=== PATIENT | male | born 1995 | race African-American/Black ===

== ENCOUNTER → 2019-09-06 | Outpatient (CLI) | payer OTHER | LOC: COL.PUL 10:00 | DX: R06.02 Shortness of breath (principal) ==

== ENCOUNTER 2020-01-18 08:03 | Outpatient (CLI) | payer OTHER ==
[2020-01-18 08:20] VITALS: BP 108/69; PULSE 68; TEMP 98.3
[2020-01-18] MEDS ORDERED: PEPCID40 MG PO (08:21)
[2020-01-18] MEDS ORDERED: PREDNISONE10 MG PO ×2 (08:22→08:23)
[2020-01-18] MEDS ORDERED: TRELEGY ELLIPT1 EACH IH (08:40)
--- NOTE | 2020-01-18 10:41 | NUR ---
2 hour post first dose Xolair observation. Denies any symptoms.
== END 2020-01-18 10:46 | disposition home or self-care (01) ==
LOC: EUO 08:03
DX: J45.50 Severe persistent asthma, uncomplicated (principal); Z79.899 Other long term (current) drug therapy
CPT/HCPCS: J2357

== ENCOUNTER 2020-02-15 08:00 | Outpatient (CLI) | payer OTHER ==
[~2020-02-15] VITALS: Ht 180.3 cm; Wt 82.7 kg
[~2020-02-15 08:00] MED LIST: PEPCID40 MG PO; PREDNISONE10 MG PO; TRELEGY ELLIPT1 EACH IH
[2020-02-15] MEDS ORDERED: XOLAIR150 MG/1 M SQ (08:39)
[2020-02-15 08:48] VITALS: BP 112/62; PULSE 72; TEMP 98.4
== END 2020-02-15 08:49 | disposition home or self-care (01) ==
LOC: EUO 08:00
DX: J45.40 Moderate persistent asthma, uncomplicated (principal); Z79.899 Other long term (current) drug therapy
CPT/HCPCS: J2357

== ENCOUNTER 2020-03-20 14:49 | Outpatient (CLI) | payer OTHER ==
[~2020-03-20] VITALS: Ht 180.3 cm; Wt 87.0 kg
[~2020-03-20 14:49] MED LIST changes: +XOLAIR150 MG/1 M SQ
[2020-03-20 15:16] VITALS: BP 124/76; PULSE 93; TEMP 97.8
== END 2020-03-20 16:31 | disposition home or self-care (01) ==
LOC: EUO 14:49
DX: J45.50 Severe persistent asthma, uncomplicated (principal); Z79.899 Other long term (current) drug therapy
CPT/HCPCS: J2357

== ENCOUNTER 2020-04-24 13:56 | Outpatient (CLI) | payer OTHER ==
[~2020-04-24] VITALS: Ht 180.3 cm; Wt 86.3 kg
[2020-04-24 14:11] VITALS: BP 108/65; PULSE 71; TEMP 98.4
== END 2020-04-24 14:45 | disposition home or self-care (01) ==
LOC: EUO 13:56
DX: J45.50 Severe persistent asthma, uncomplicated (principal); Z79.899 Other long term (current) drug therapy

== ENCOUNTER 2020-07-16 15:23 | Outpatient (CLI) | payer OTHER ==
[~2020-07-16] VITALS: Ht 180.3 cm; Wt 86.0 kg
[2020-07-16 15:48] VITALS: BP 109/69; PULSE 76; TEMP 98.6
== END 2020-07-16 16:10 | disposition home or self-care (01) ==
LOC: EUO 15:23
DX: J45.50 Severe persistent asthma, uncomplicated (principal)
CPT/HCPCS: J2357

== ENCOUNTER 2020-08-07 15:11 | Outpatient (CLI) | payer OTHER ==
[~2020-08-07] VITALS: Ht 180.3 cm; Wt 86.3 kg
[2020-08-07] MEDS ORDERED: SINGULAIR 110 MG/TAB PO (15:27)
[2020-08-07] MEDS ORDERED: PROAIR HFA0.09 MG/AC IH (15:28)
[2020-08-07] MEDS ORDERED: ZYRTEC 10MG10 MG PO (15:28)
[2020-08-07 15:30] VITALS: BP 117/74; PULSE 76; TEMP 98.8
== END 2020-08-07 15:41 | disposition home or self-care (01) ==
LOC: EUO 15:11
DX: J45.50 Severe persistent asthma, uncomplicated (principal); Z79.899 Other long term (current) drug therapy
CPT/HCPCS: J2357

== ENCOUNTER 2020-09-06 15:31 | Outpatient (CLI) | payer OTHER ==
[~2020-09-06] VITALS: Ht 180.3 cm; Wt 84.0 kg
[~2020-09-06 15:31] MED LIST changes: +PROAIR HFA0.09 MG/AC IH; +SINGULAIR 110 MG/TAB PO; +ZYRTEC 10MG10 MG PO
[2020-09-06 16:05] VITALS: BP 119/67; PULSE 63; TEMP 98.4
== END 2020-09-17 17:43 ==
LOC: EUO 15:31
DX: J45.50 Severe persistent asthma, uncomplicated (principal); Z79.899 Other long term (current) drug therapy
CPT/HCPCS: J2357

== ENCOUNTER 2020-10-04 15:29 | Outpatient (CLI) | payer OTHER ==
[~2020-10-04] VITALS: Ht 180.3 cm; Wt 88.6 kg
[2020-10-04 16:05] VITALS: BP 120/75; PULSE 86; TEMP 98.2
== END 2020-10-04 16:19 | disposition home or self-care (01) ==
LOC: EUO 15:29
DX: J45.50 Severe persistent asthma, uncomplicated (principal); Z79.899 Other long term (current) drug therapy
CPT/HCPCS: J2357

== ENCOUNTER 2020-11-06 16:12 | Outpatient (CLI) | payer OTHER ==
[~2020-11-06] VITALS: Ht 180.3 cm; Wt 86.5 kg
[2020-11-06 16:33] VITALS: BP 130/62; PULSE 84; TEMP 98.6
== END 2020-11-06 16:34 | disposition home or self-care (01) ==
LOC: EUO 16:12
DX: J45.50 Severe persistent asthma, uncomplicated (principal); Z79.899 Other long term (current) drug therapy
CPT/HCPCS: J2357